=== PATIENT | female | born 1970 | race Caucasian/White ===

== ENCOUNTER → 2017-02-23 | Outpatient (CLI) | payer BC | END | disposition home or self-care (01) | LOC: CFH 15:26 | PROVIDERS: ATTEND Internal Medicine | DX: M19.011 Primary osteoarthritis, right shoulder (principal); R07.89 Other chest pain; F32.89 Other specified depressive episodes; E78.1 Pure hyperglyceridemia; R59.0 Localized enlarged lymph nodes; R61 Generalized hyperhidrosis | CPT/HCPCS: 71020 ==

== ENCOUNTER → 2018-11-03 | Outpatient (CLI) | payer BC | END | disposition home or self-care (01) | LOC: CFH 13:29 | PROVIDERS: ATTEND Internal Medicine | DX: M25.551 Pain in right hip (principal); Z98.890 Other specified postprocedural states ==